=== PATIENT | female | born 1980 | race Caucasian/White ===

== ENCOUNTER → 2017-06-23 11:23 | Outpatient (POV) | payer BC, SELFPAY ==
[2017-06-23 11:58] VITALS: BP 155/72; PULSE 86; RESP 16; TEMP 36.4; O2SAT 98; BMI 40.7
--- NOTE | 2017-06-23 12:02 | P.CONS_ITS ---
[facility] Pain Management SOAP Note Subjective:: This patient is a pleasant 37-year-old white female who we have treated in the past for neck pain and headaches with cervical epidural steroid injections. She has not gotten much relief from 2 cervical epidural steroid injections. She is having muscle spasms in her neck and also in her low back. She is currently on Zanaflex 4 mg 3 times a day. I do believe she may benefit from trigger point injections. We will schedule her for trigger point injections to the cervical paraspinous muscles and upper trapezius muscles. Objective:: Alert and oriented ?3 in no acute distress. Tenderness over the cervical spine and upper trapezius area. Tenderness over the lower lumbar spine. Motor strength of the upper and lower extremities is 5/5. There is no gross sensory deficit. Assessment:: Neck pain myofascial in origin, low back pain myofascial in origin Plan:: I do believe that she may benefit from trigger point injections. We will start with the cervical paraspinous muscles and upper trapezius muscles. We will schedule her for trigger point injections to these areas bilaterally.
== END ==
PROVIDERS: PCP Nurse Practitioner Family; Visit Provider Anesthesiology
DX: M54.5 Low back pain (principal); M54.2 Cervicalgia
CPT/HCPCS: 99212

== ENCOUNTER → 2017-07-25 10:44 | Day surgery (SDC) | payer BC, SELFPAY ==
[2017-07-25 12:19] VITALS: BP 133/66; PULSE 86; RESP 24; TEMP 36.4; O2SAT 97; BMI 40.7
[2017-07-25 12:34] VITALS: BP 145/70; PULSE 88; RESP 18
[2017-07-25 12:40] VITALS: BP 145/76; PULSE 80; RESP 18
--- NOTE | 2017-07-25 12:43 | P.PCN_ITS ---
- Procedure Date: 07/25/17 Time: 12:41 Anesthesiologist:: Thierry Brennan MD Complications:: None Pre-procedure Diagnosis:: Neck pain myofascial in origin Post-procedure Diagnosis:: Same Indications for Procedure:: This patient is a pleasant 37-year-old white female who we have treated in the past for neck pain and headaches with cervical epidural steroid injections. She is doing well with her headaches however she does have some myofascial pain in the upper trapezius area and cervical paraspinous area bilaterally. She also has some myofascial pain in her lower lumbar area. We will start with her neck and upper trapezius area today and do trigger point injections. She does have significant myofascial pain with trigger points identified. Procedure Details:: Trigger point injections ?8 to bilateral cervical paraspinous muscles and upper trapezius muscles Informed consent was obtained and the risk and benefits of the procedure was explained to the patient. Patient was taken to the procedure room. The neck upper trapezius area was prepped using prep. Triggerpoints were palpated and marked. Each of each of these trigger points were injected with bupivacaine 0.5 % 3 mL and Depo-Medrol 10 mg. A total of 8 trigger points were injected using 80 mg Depo-Medrol. The patient tolerated the procedure well with no complications. Plan and Disposition:: We will follow-up with her in 2 weeks. We will reevaluate her symptoms at that time. We will schedule her in the future for trigger point injections to the lower lumbar area.
[2017-07-25 12:46] VITALS: BP 148/87; PULSE 80; RESP 20; TEMP 36.6; O2SAT 95
== END ==
PROVIDERS: Family Provider Family Medicine; PCP Family Medicine; Visit Provider Anesthesiology
DX: M79.1 Myalgia (principal)
CPT/HCPCS: 20552

== ENCOUNTER → 2017-08-18 13:54 | Outpatient (POV) | payer BC, SELFPAY ==
[2017-08-18 14:47] VITALS: BP 145/93; PULSE 94; RESP 20; O2SAT 97; BMI 40.7
--- NOTE | 2017-08-18 15:02 | HMH.PAINSOAP ---
[facility] Pain Management SOAP Note Subjective:: This patient is a 37-year-old white female who we have been treating for neck pain with cervical radicular symptoms and headaches. She has had cervical epidural steroid injections as well as trigger point injections with minimal relief in pain symptoms. She is also had Botox injections for her headaches which have not helped. We were denied for previous cervical MRI. Since she is not getting any benefit from injections I believe that she needs a repeat cervical MRI and referral to spine surgeon for evaluation. We will send her to Dr. Salamanca here in [place] for evaluation. Objective:: Alert and oriented ?3 in no acute distress. Decreased range of motion of the cervical spine. Tenderness over the midline of the cervical spine. Motor strength of the upper extremities is 5/5. There is no gross sensory deficit. Assessment:: Neck pain with headaches and cervical radicular symptoms. Plan:: We will refer her to Dr. Salamanca for evaluation. We will seek approval for repeat cervical MRI.
== END ==
PROVIDERS: Family Provider Family Medicine; PCP Family Medicine; Visit Provider Anesthesiology
DX: M54.12 Radiculopathy, cervical region (principal)
CPT/HCPCS: 99212

== ENCOUNTER → 2017-08-21 14:55 | Outpatient (CLI) | payer BC, SELFPAY ==
--- NOTE | 2017-08-21 15:00 | MR_ITS ---
MR cervical spine wo con, MR 3-d myelogram/MRCP HISTORY: PT states hx migraines. Neck and arm pain, numbness and tingling X years. ITS.REASON: NECK AND ARM PAIN ORDERING PHYSICIAN: Thierry Brennan MD PATIENT AGE: 37 years COMPARISON: Prior X-Ray 03/17/17 TECHNIQUE: Standard multiplanar multiecho sequences are performed without contrast. 3-D MIP and myelographic images are also rendered and reviewed FINDINGS: There is normal alignment. The craniocervical junction has an unremarkable appearance. There is straightening of the cervical lordosis which could be due to patient positioning or muscle spasm. C2-C3, C3-C4, C4-C5, and C5-C6 has an unremarkable appearance. C6-C7: There is a small left paracentral disc protrusion without impingement. C7-T1: Unremarkable. No canal stenosis or significant degenerative change evident. IMPRESSION: 1. Small left paracentral disc protrusion at C6-C7 without impingement. 2. Straightening of cervical lordosis which may be due to patient positioning or muscle spasm. 3. Otherwise negative MRI of the cervical spine.
== END ==
PROVIDERS: Family Provider Family Medicine; PCP Family Medicine; Visit Provider Anesthesiology
DX: M54.2 Cervicalgia (principal)
CPT/HCPCS: 72141; 76376

== ENCOUNTER 2017-11-24 08:30 | Outpatient (RCR) | payer BC, SELFPAY | END 2017-11-24 08:31 | disposition home or self-care (01) | LOC: PT 08:30 | PROVIDERS: Family Provider Family Medicine; PCP Family Medicine; Visit Provider Nurse Practitioner Family | DX: M79.1 Myalgia (principal); R51 Headache | CPT/HCPCS: 97010; 97012; 97014; 97110; 97163; G0283 ==

== ENCOUNTER → 2018-01-10 10:03 | Outpatient (CLI) | payer BC, SELFPAY ==
[2018-01-10 10:40] LABS: Basophils # 0.1 K/mm3 (0-0.2); Basophils % 0.8 % (0.1-2.0); Eosinophils # 0.3 K/mm3 (0.0-0.4); Eosinophils % 3.7 % (0.1-12.0); Hematocrit 42.8 % (37.0-47.0); Hemoglobin 14.4 g/dL (12.2-16.2); Lymphocytes # 2.4 K/mm3 (0.7-4.5); Lymphocytes % 30.7 K/mm3 (10-50); Mean Corpuscular HGB Conc 33.7 g/dL (31.8-35.4); Mean Corpuscular Hemoglobin 30.4 pg (27.0-31.2); Mean Corpuscular Volume 90.2 fl (81-99); Mean Platelet Volume 7.7 fl (7.4-10.4); Monocytes # 0.4 K/mm3 (0.1-1.0); Monocytes % 4.9 % (1.7-9.3); Neutrophils # 4.7 K/mm3 (1.8-7.8); Neutrophils % 59.9 % (37.0-80.0); Platelet Count 275 K/mm3 (142-424); Red Blood Count 4.75 M/mm3 (4.20-5.40); Red Cell Distribution Width 12.8 % (11.5-17.5); White Blood Count 7.8 K/mm3 (4.8-10.8)
[2018-01-10 10:45] LABS: Glucose,Fasting 128 mg/dL (60-105)
[2018-01-10 12:10] LABS: Glucose 1 Hour 294 mg/dL (74-106)
[2018-01-10 12:20] LABS: Hemoglobin A1C 6.7 % (0.0-7.0)
[2018-01-10 12:24] LABS: Alanine Aminotransferase 116 U/L (12-78); Albumin Level 3.6 gm/dL (3.4-5.0); Alkaline Phosphatase 88 U/L (46-116); Anion Gap 17.1 mEq/L (5-15); Aspartate Amino Transferase 42 U/L (15-37); Bilirubin,Total 0.2 mg/dL (0.2-1.0); Blood Urea Nitrogen 12 mg/dL (7-18); Carbon Dioxide 20 mmol/L (21.0-32.0); Chloride 108 mmol/L (98-107); Chol/HDL Ratio 9.1 (1-3.5); Cholesterol 265 mg/dL (140-200); Creatinine,Serum 0.85 mg/dL (0.55-1.02); Estimated Glomerular Filt Rate 76 ml/min (>60); GFR (African American) 92 ML/MIN (>60); Globulin 3.7 gm/dl (1.3-3.2); Glucose 125 mg/dL (74-106); HDL Cholesterol 29 mg/dL (29-89); LDL Cholesterol 197 mg/dL (0-130); Potassium 4.1 mmoL/L (3.5-5.1); Sodium 141 mmol/L (136-145); T4 (Thyroxine) 8.5 ug/dl (4.7-13.3); Thyroid Stimulating Hormone 3.78 uIU/ml (0.358-3.740); Total Protein,Serum 7.3 gm/dL (6.4-8.2); Triglycerides 197 mg/dL (30-200); VLDL Cholesterol 39 mg/dL (0-40)
[2018-01-10 12:53] LABS: Glucose 2 Hour 291 mg/dL (74-106)
[2018-01-10 13:52] LABS: Glucose 3 Hour 141 mg/dL (74-106)
[2018-01-11 16:11] LABS: Hep A Ab, IgM Negative (Negative); Hepatitis B Core Antibody IgM Negative (Negative); Hepatitis B Surface Antigen Negative (Negative)
[2018-01-12 05:32] LABS: Hepatitis C Antibody 0.1 s/co ratio (0.0-0.9)
[2018-01-13 16:04] LABS: Vitamin D 25 Hydroxy 20.5 ng/mL (30.0-100.0)
== END ==
PROVIDERS: PCP Nurse Practitioner Family; Visit Provider Nurse Practitioner Family
DX: E16.2 Hypoglycemia, unspecified (principal); R76.8 Other specified abnormal immunological findings in serum; R10.9 Unspecified abdominal pain
CPT/HCPCS: 36415; 80053; 80061; 80074; 82652; 82951; 83036; 84436; 84443; 85025

== ENCOUNTER → 2018-01-19 09:23 | Outpatient (CLI) | payer BC, SELFPAY ==
--- NOTE | 2018-01-19 09:28 | US_ITS ---
US abdomen complete HISTORY: Elevated liver enzymes ITS.REASON: ruq pain ORDERING PHYSICIAN: Tarun hCen PATIENT AGE: 37 years COMPARISON: Previous ultrasound right upper December 2013 FINDINGS: PANCREAS:Unremarkable. No obvious mass or abnormal fluid collection. No ductal dilatation LIVER. Diffuse fatty changes.:No focal liver lesions demonstrated... No intrahepatic biliary ductal dilatation evident Portal vein unremarkable. Normal. COMMON DUCT normal diameter 3 mm at hilum of liver GALLBLADDER:No gallstones, minimal sludge. Moderate size measuring 8.2 cm length upper normal gallbladder wall thickness wall measuring up to 4 mm in some areas RIGHT KIDNEY:Unremarkable 11.5 cm length.. Normal size and echogenicity. No hydronephrosis LEFT KIDNEY:Unremarkable 11.8 cm length.. No hydronephrosis. Normal size and echogenicity. . AORTA:No evidence of aneurysmal dilatation. SPLEEN:Unremarkable. Normal size and echogenicity No fluid or ascites encountered at upper abdomen. IMPRESSION: 1. Gallbladder. No gallstones. Minimal sludge. Borderline wall thickening. 2. Common duct normal. 3. Diffuse fatty changes liver. 4. Pancreas kidneys aorta spleen unremarkable
== END ==
PROVIDERS: Family Provider Family Medicine; PCP Nurse Practitioner Family; Visit Provider Nurse Practitioner Family
DX: R10.9 Unspecified abdominal pain (principal)
CPT/HCPCS: 76700

== ENCOUNTER → 2018-02-09 10:35 | Outpatient (CLI) | payer BC, SELFPAY ==
--- NOTE | 2018-02-09 10:36 | NM_ITS ---
NM hepatobiliary wo pharm HISTORY: Elevated liver enzymes, abdominal pain ITS.REASON: sludge ORDERING PHYSICIAN: Tarun Chen PATIENT AGE: 37 years COMPARISON: None DOSE: 8.23 MCI TC Choletec INJ into RT ANT Fatty Meal Ensure FINDINGS: Homogeneous activity is present within the hepatic parenchyma. Activity is present in the gallbladder by 5 minutes. Activity is present in the small bowel by 60 minutes. The gallbladder ejection fraction is calculated to be 58% The patient did not report pain or other symptoms during the fatty meal. IMPRESSION: Unremarkable hepatobiliary scan and gallbladder ejection fraction. No evidence of common or cystic duct obstruction with normal gallbladder ejection fraction
--- NOTE | 2018-02-09 10:48 | HMH.ITSHM ---
VENLAFAXINE TOPIRAMATE METOPROLOL METOCLOPRAMIDE LEVOTHYROXINE VITAMIN D2 ATORVASTATIN
== END ==
PROVIDERS: Family Provider Family Medicine; PCP Nurse Practitioner Family; Visit Provider Nurse Practitioner Family
DX: K82.8 Other specified diseases of gallbladder (principal)
CPT/HCPCS: 78226; A9537

== ENCOUNTER → 2018-02-19 13:38 | Outpatient (REF) | payer BC, SELFPAY ==
[2018-02-19 18:47] LABS: Cannabinoid Screen,Urine Negative ng/mL (<50); Cocaine Screen,Urine Negative ng/mL (<300); Methadone Screen,Urine Negative ng/mL (<300); Opiate Screen,Urine Negative ng/mL (<300); Phencyclidine Screen,Urine Negative ng/mL (<25)
[2018-02-19 19:06] LABS: Amphetamine/Metha Screen,Urine Negative ng/mL (<1000); Barbiturates Screen,Urine Negative ng/mL (<200); Benzodiazepines Screen,Urine Negative ng/mL (<200)
== END ==
LOC: LAB 13:38
PROVIDERS: PCP Nurse Practitioner Family; Visit Provider Nurse Practitioner Family
DX: Z79.899 Other long term (current) drug therapy (principal)
CPT/HCPCS: 80305

== ENCOUNTER → 2019-08-24 15:00 | Outpatient (CLI) | payer OTHER, SELFPAY ==
[2019-08-25 08:44] LABS: Adenovirus F 40/41, stool Not Detected (NotDetected); Astrovirus Not Detected (NotDetected); Campylobacter Not Detected (NotDetected); Clostridium Difficile A/B, PCR Not Detected (NotDetected); Cryptosporidium Not Detected (NotDetected); Cyclospora Cayetanesis Not Detected (NotDetected); Entamoeba histolytica Not Detected (NotDetected); Enteroaggregative E coli Not Detected (NotDetected); Enteropathogenic E coli Not Detected (NotDetected); Enterotoxigenic E coli Not Detected (NotDetected); Giardia lamblia Not Detected (NotDetected); Norovirus Not Detected (NotDetected); Plesimonas Shigalloides, PCR Not Detected (NotDetected); Rotavirus A Not Detected (NotDetected); Salmonella, PCR Not Detected (NotDetected); Sapovirus Not Detected (NotDetected); Shiga-like toxin E coli Not Detected (NotDetected); Shigella Enterovasive E coli Not Detected (NotDetected); Vibrio Cholerae Not Detected (NotDetected); Vibrio, PCR Not Detected (NotDetected); Yersinia Entercolitica, PCR Not Detected (NotDetected)
== END ==
PROVIDERS: Visit Provider Nurse Practitioner Family
DX: R10.11 Right upper quadrant pain (principal); R19.7 Diarrhea, unspecified; R11.0 Nausea; R14.3 Flatulence; K82.9 Disease of gallbladder, unspecified; K52.9 Noninfective gastroenteritis and colitis, unspecified; A09 Infectious gastroenteritis and colitis, unspecified
CPT/HCPCS: 87507

== ENCOUNTER → 2019-08-25 10:06 | Outpatient (CLI) | payer OTHER, SELFPAY ==
--- NOTE | 2019-08-25 10:06 | US_ITS ---
PROCEDURE: US GALLBLADDER CLINICAL INDICATION: abd pain Right upper quadrant pain and nausea COMPARISON: No exams were available for comparison FINDINGS: Pancreas: Unremarkable/Not well seen Liver: Unremarkable. There is appropriate direction of blood flow within a non dilated portal vein. Right kidney: Unremarkable appearing. No hydronephrosis. Gallbladder: No stones are evident. There is no gallbladder wall thickening. Common duct is normal in diameter. IMPRESSION: Negative gallbladder ultrasound. No stones evident. Dictated by: Gallo Silvestre MD 08/25/2019 11:22 Electronically signed by Gallo Silvestre MD in [place] 08/25/2019 11:22
== END ==
PROVIDERS: PCP Nurse Practitioner Family; Visit Provider Nurse Practitioner Family
DX: R10.11 Right upper quadrant pain (principal)
CPT/HCPCS: 76705

== ENCOUNTER → 2020-02-09 18:45 | Outpatient (CLI) | payer OTHER, SELFPAY ==
[2020-02-09 19:37] LABS: Basophils # 0.1 K/mm3 (0-0.2); Basophils % 0.6 % (0.1-2.0); Eosinophils # 0.3 K/mm3 (0.0-0.4); Eosinophils % 2.8 % (0.1-12.0); Hematocrit 41.5 % (37.0-47.0); Lymphocytes # 3.2 K/mm3 (0.7-4.5); Lymphocytes % 28.4 % (10-50); Mean Corpuscular HGB Conc 33.7 g/dL (31.8-35.4); Mean Corpuscular Hemoglobin 31.3 pg (27.0-31.2); Mean Corpuscular Volume 93.1 fl (81-99); Mean Platelet Volume 8.3 fl (7.4-10.4); Monocytes # 0.6 K/mm3 (0.1-1.0); Monocytes % 4.9 % (1.7-9.3); Neutrophils # 7.1 K/mm3 (1.8-7.8); Neutrophils % 63.4 % (37.0-80.0); Platelet Count 262 K/mm3 (142-424); Red Blood Count 4.46 M/mm3 (4.20-5.40); Red Cell Distribution Width 12.8 % (11.5-17.5); White Blood Count 11.3 K/mm3 (4.8-10.8)
[2020-02-09 19:41] LABS: Alanine Aminotransferase 26 U/L (12-78); Albumin Level 4.6 g/dl (3.5-5.0); Albumin/Globulin Ratio 1.6 (1.1-1.8); Alkaline Phosphatase 84 U/L (38-126); Anion Gap 17.2 mEq/L (5-15); Aspartate Amino Transferase 26 U/L (14-36); Bilirubin,Total 0.3 mg/dl (0.2-1.3); Blood Urea Nitrogen 11 mg/dl (7-17); Calcium 9.8 mg/dl (8.4-10.2); Carbon Dioxide 24 mmol/L (22.0-30.0); Chloride 110 mmol/L (98-107); Chol/HDL Ratio 4.5 (1-3.5); Cholesterol 147 mg/dl (140-200); Estimated Glomerular Filt Rate 80 ml/min (>60); GFR (African American) 97 ML/MIN (>60); Globulin 2.9 g/dL (1.3-3.2); Glucose 111 mg/dl (74-100); HDL Cholesterol 33 mg/dl (40-60); Potassium 4.2 mmoL/L (3.5-5.1); Sodium 147 mmol/L (136-145); Total Protein,Serum 7.5 g/dl (6.3-8.2); Triglycerides 160 mg/dl (30-150); VLDL Cholesterol 32 mg/dL (0-40)
[2020-02-09 19:43] LABS: Creatinine,Urine Random 119 mg/dL (Not Estab.)
[2020-02-09 19:52] LABS: Direct LDL Cholesterol 91.25 mg/dL (100-129)
[2020-02-09 19:54] LABS: Microalbumin < 6.000 mg/L (0-16.7)
[2020-02-09 19:59] LABS: 25-OH Vitamin D, Total 53.9 ng/mL (30-100); Hemoglobin A1C 6.2 % (4.0-6.0)
[2020-02-09 20:01] LABS: T4 (Thyroxine) 12.3 ug/dl (5.53-11.0)
[2020-02-09 20:14] LABS: Thyroid Stimulating Hormone 0.02 uIU/mL (0.465-4.68)
== END ==
PROVIDERS: Visit Provider Nurse Practitioner Family
DX: E03.9 Hypothyroidism, unspecified (principal); E11.9 Type 2 diabetes mellitus without complications; E78.5 Hyperlipidemia, unspecified; R53.83 Other fatigue
CPT/HCPCS: 80053; 80061; 82043; 82306; 82570; 83036; 84436; 84443; 85025

== ENCOUNTER → 2020-04-18 08:32 | Outpatient (CLI) | payer OTHER, SELFPAY ==
--- NOTE | 2020-04-18 08:35 | US_ITS ---
PROCEDURE: US ABDOMEN LIMITED CLINICAL INDICATION: RUQ PAIN COMPARISON: US [facility] US abdomen complete from 01/19/2018 FINDINGS: PANCREAS: Unremarkable. No obvious mass or abnormal fluid collection. No ductal dilatation LIVER: No focal liver lesions demonstrated. Homogeneous echogenicity. No intrahepatic biliary ductal dilatation evident. There is appropriate direction of blood flow within a non dilated portal vein RIGHT KIDNEY: Unremarkable. Normal size and echogenicity. No hydronephrosis GALLBLADDER: No gallstones, gallbladder wall thickening, pericholecystic fluid, or biliary dilatation. IMPRESSION: Unremarkable limited abdominal ultrasound as detailed above disc Dictated by: Gallo Silvestre MD 04/18/2020 17:01 Gallo Silvestre MD in [place] 04/18/2020 17:01
== END ==
PROVIDERS: PCP Family Medicine; Visit Provider Family Medicine
DX: R10.11 Right upper quadrant pain (principal)
CPT/HCPCS: 76705

== ENCOUNTER → 2020-05-11 10:13 | Outpatient (CLI) | payer OTHER, SELFPAY ==
--- NOTE | 2020-05-11 10:16 | NM_ITS ---
PROCEDURE: NM HEPATOBILIARY W PHARM CLINICAL INDICATION: RUQ PAIN COMPARISON: No exams were available for comparison TECHNIQUE: DOSE: 8.17 MCI TECHNETIUM CHOLETEC 2.2 MCG OF CCK. MILD PAIN WAS REPORTED WITH CCK INFUSION FINDINGS: Homogeneous activity is present within the hepatic parenchyma. Activity is present in the gallbladder by 15 MINUTES. Activity is present in the small bowel by 5 MINUTES. The gallbladder ejection fraction is calculated to be 13 percent. Mild pain was reported with CCK infusion IMPRESSION: There is no evidence of common or cystic duct obstruction. The gallbladder ejection fraction is low and there was mild pain reported with CCK infusion. These findings may indicate gallbladder dyskinesia. Please correlate with clinical parameters Dictated by: Gallo Silvestre MD 05/11/2020 13:00 Gallo Silvestre MD in [place] 05/11/2020 13:00
== END ==
PROVIDERS: PCP Family Medicine; Visit Provider Family Medicine
DX: R10.11 Right upper quadrant pain (principal)
CPT/HCPCS: 78227; A9537; J2805

== ENCOUNTER → 2020-06-03 08:05 | Outpatient (CLI) | payer OTHER, SELFPAY ==
[2020-06-03 08:17] LABS: Basophils # 0.1 K/mm3 (0-0.2); Basophils % 0.8 % (0.1-2.0); Eosinophils # 0.3 K/mm3 (0.0-0.4); Eosinophils % 2.8 % (0.1-12.0); Hematocrit 44.8 % (37.0-47.0); Hemoglobin 14.8 g/dL (12.2-16.2); Lymphocytes # 2.6 K/mm3 (0.7-4.5); Lymphocytes % 26.8 % (10-50); Mean Corpuscular HGB Conc 33.1 g/dL (31.8-35.4); Mean Corpuscular Hemoglobin 31.3 pg (27.0-31.2); Mean Corpuscular Volume 94.5 fl (81-99); Mean Platelet Volume 7.5 fl (7.4-10.4); Monocytes # 0.5 K/mm3 (0.1-1.0); Monocytes % 5.5 % (1.7-9.3); Neutrophils # 6.1 K/mm3 (1.8-7.8); Platelet Count 262 K/mm3 (142-424); Red Blood Count 4.74 M/mm3 (4.20-5.40); Red Cell Distribution Width 13.2 % (11.5-17.5); White Blood Count 9.6 K/mm3 (4.8-10.8)
[2020-06-03 08:44] LABS: Alanine Aminotransferase 28 U/L (12-78); Albumin Level 4.4 g/dl (3.5-5.0); Albumin/Globulin Ratio 1.6 (1.1-1.8); Alkaline Phosphatase 83 U/L (38-126); Anion Gap 12.8 mEq/L (5-15); Aspartate Amino Transferase 25 U/L (14-36); Bilirubin,Total 0.4 mg/dl (0.2-1.3); Blood Urea Nitrogen 12 mg/dl (7-17); Calcium 9.8 mg/dl (8.4-10.2); Carbon Dioxide 24 mmol/L (22.0-30.0); Chloride 108 mmol/L (98-107); Estimated Glomerular Filt Rate 80 ml/min (>60); GFR (African American) 97 ML/MIN (>60); Globulin 2.8 g/dL (1.3-3.2); Glucose 123 mg/dl (74-100); Potassium 3.8 mmoL/L (3.5-5.1); Sodium 141 mmol/L (136-145); Total Protein,Serum 7.2 g/dl (6.3-8.2)
[2020-06-03 08:58] LABS: Coronavirus 19 IgG Antibody Negative (Negative); Coronavirus 19 IgM Antibody Negative (Negative)
== END ==
PROVIDERS: Visit Provider Surgery
DX: Z01.818 Encounter for other preprocedural examination (principal); Z11.52 Encounter for screening for COVID-19; R10.11 Right upper quadrant pain; K82.8 Other specified diseases of gallbladder
CPT/HCPCS: 36415; 80053; 85025; 86328

== ENCOUNTER 2020-06-05 06:07 | Day surgery (SDC) | payer OTHER, SELFPAY ==
[2020-05-30 11:34] VITALS: BMI 37.0
[2020-06-05] VITALS (12 sets, daily range): BP systolic 90–111; BP diastolic 58–72; PULSE 54–69; RESP 12–20; TEMP 36.1–43; O2SAT 95–100
[2020-06-05 06:35] LABS: POC Glucose,Bedside 110 (70-110)
--- NOTE | 2020-06-05 06:56 | P.PN_ITS ---
[facility] Anesthesia Checklist - Structural Data Admitted From: Home Planned Operative Procedure/s: jani vazqueze Consent for Planned Operative Procedure(s) Verified: Yes - Additional verifications Anesthesia Reactions: No Hx Blood Transfusions: No Blood Transfusion Reaction: No - Airway Assessment C-Spine Mobility Assessed: Yes TMJ Mobility Assessed: Yes Dentition: Good Dentition - Neurological Assessment Level of Consciousness: Awake, Alert, Appropriate - Anesthesia Plan Anesthesia Risk discussed: Yes Anesthesia Plan: Verified ASA Class: III Anesthesia Type: General [facility] History I have reviewed the patient's past medical history: Yes Medical History: Reports:: Diabetes Mellitus Type 2, Hyperlipidemia, Migraine, MRSA Denies:: Cancer, Diabetes Mellitus Type 1, Internal Pacemaker, Seizures *Have you ever received a pneumonia vaccine?: No *Have you received a flu vaccine this season?: No Other Medical History: Reports: Hypothyroidism. Denies: Blood Transfusion Reaction Anesthesia experience/problems:: none Other Surgeries: Yes: Hysterectomy-Total, Other. No: Pacemaker Amputation: No Fractures: No - *Social History Last grade of school completed: Some college Smoking Status: Current every day smoker Tobacco Type: cigarettes # Packs/Day (cigarettes): 1 Alcohol Intake: never Substance Use Type: denies use *Occupational Status:: employed Housing: house Household Members: spouse, children *Travel in the last 8 weeks: None Family Hx:: Coronary Artery Disease, Diabetes, Heart Attack, Hyperlipidemia, Hypertension
--- NOTE | 2020-06-05 08:15 | HMH.OPNOTE ---
Date of procedure: 06/05/20 Pre-op Diagnosis:: Biliary dyskinesia Post-op Diagnosis:: Chronic cholecystitis Procedure performed:: Laparoscopic cholecystectomy Surgeon:: Jonathan Bosch MD [employer] MACHINE SETTER:: Keyshawn Vinson Anesthesia: GETA Estimated blood loss (mL): 10 Operative findings:: Significant pericholecystic fat stranding Operative note:: After informed consent was obtained, the patient was taken to the operating room and placed in the supine position. General anesthesia was induced and the abdomen was prepped and draped in a sterile fashion. After infiltration with local anesthetic an infraumbilical incision was made. A Veress needle was placed in position. The abdomen was insufflated. A 5 mm optical trocar was placed in position. Under direct visualization, a 12 mm trocar was placed in the subxiphoid position and 2 additional 5 mm trocars were placed in the right upper quadrant. The gallbladder was elevated up and over the liver margin. The tissue around the cystic duct was carefully dissected. 3 clips were placed proximally and the duct was transected with harmonic odalis. Harmonic odalis were then utilized to dissect the gallbladder away from the liver margin with careful attention to the control of the cystic artery. The gallbladder was placed in a retrieval bag and removed through the subxiphoid trocar site. The right upper quadrant was thoroughly irrigated. No active bleeding or bile leak was noted. Fascia at the subxiphoid trocar site was reapproximated utilizing the NeoClose device. The remaining trocars were removed. All wounds were irrigated and skin was closed with 4-0 Monocryl in a subcuticular fashion. Steri-Strips were applied. The patient's anesthetic agents were reversed and extubation was completed prior to transfer to recovery in stable condition. Condition: stable Disposition: PACU Specimens:: Gallbladder and contents Complications:: No immediate
--- NOTE | 2020-06-05 08:22 | P.PN_ITS ---
[facility] Anesthesia Record Part I Intake, IV Amount: 1,500 Estimated blood loss (mL): 0 Urine output (mL): 0 Blood Pressure: 110/58 SaO2: 97 Pulse Rate: 66 Respiratory Rate: 12 Temperature: 97.8 F Patient is:: Awake, Stable Stable to PACU at:: 08:20
[2020-06-06 09:28] VITALS: BP 101/58; PULSE 62; TEMP 36.3
--- NOTE | 2020-06-06 09:28 | HMH.ANESII ---
[facility] Anesthesia Record Part II Discharge Time: 08:50 Destination: [facility] PACU nurse assessment reviewed?: Yes Patient Condition:: Good Anesthesia Complications:: None Swallowing reflex intact?: Yes Cyanosis?: No Blood Pressure: 101/58 Pulse Rate: 62 Temperature: 97.3 F Mental Status: Alert & Oriented Pain level:: 0 Nausea and/or vomitting:: None Intake, IV Amount: 1,500
== END 2020-06-05 09:33 | disposition home or self-care (01) ==
LOC: OR 06:09
PROVIDERS: PCP Family Medicine; Visit Provider Surgery
PROC: 0FT44ZZ Resection of Gallbladder, Percutaneous Endoscopic Approach (ICD-10-PCS; CPT 47562; principal; 2020-06-05 07:30)
DX: K81.1 Chronic cholecystitis; E11.9 Type 2 diabetes mellitus without complications; E78.5 Hyperlipidemia, unspecified; G43.909 Migraine, unspecified, not intractable, without status migrainosus; Z86.14 Personal history of Methicillin resistant Staphylococcus aureus infection; E03.9 Hypothyroidism, unspecified; Z72.0 Tobacco use; Z82.49 Family history of ischemic heart disease and other diseases of the circulatory system; Z83.438 Family history of other disorder of lipoprotein metabolism and other lipidemia
CPT/HCPCS: 47562; 82962; 96374; J2405; J2710

== ENCOUNTER → 2020-07-24 09:43 | Outpatient (CLI) | payer OTHER, SELFPAY ==
--- NOTE | 2020-07-24 09:43 | NM_ITS ---
PROCEDURE: NM GASTRIC EMPTYING STUDY CLINICAL INDICATION: Abdominal pain and nausea since gallbladder surgery COMPARISON: No exams were available for comparison FINDINGS: Dose: 0.53 mCi technetium sulfur colloid in radial labeled meal. Time activity curve is generated following the ingestion of a radial labeled meal. The 1/2 emptying time is 53 minutes which is within normal limits. Images generated show no obvious reflux. 96 percent of the gastric contents had emptied at 249 minutes. IMPRESSION: Normal gastric emptying time Dictated by: Gallo Silvestre MD 07/24/2020 16:16 Gallo Silvestre MD in [place] 07/24/2020 16:16
--- NOTE | 2020-07-24 10:50 | HMH.ITSHM ---
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 []METOPROLOL ATORVASTATIN METFORMIN LEVOTHYROXINE VITAMIN D2
== END ==
PROVIDERS: PCP Family Medicine; Visit Provider Surgery
DX: R11.0 Nausea (principal); Z98.890 Other specified postprocedural states
CPT/HCPCS: 78264; A9541

== ENCOUNTER → 2020-09-05 08:36 | Outpatient (CLI) | payer OTHER, SELFPAY ==
--- NOTE | 2020-09-05 08:45 | FL_ITS ---
PROCEDURE: FL UPPER GI SMALL BOWEL CLINICAL INDICATION: gallbladder removal pain Right upper quadrant pain COMPARISON: No exams were available for comparison FINDINGS: [employer] Flat Grinder exam shows no acute finding. The esophagus has an unremarkable appearance. No annular constricting lesions or polypoid filling defects. No hiatal hernia. There was a mild amount of GE reflux. The stomach and duodenum are unremarkable. No mass or ulcer apparent. There has been a prior cholecystectomy. Small bowel has an unremarkable appearance. No obstructing lesions masses or mucosal abnormalities apparent. Spot views of the terminal ileum are unremarkable. IMPRESSION: Minimal amount GE reflux otherwise negative upper GI with small-bowel follow-through Dictated by: Gallo Silvestre MD 09/05/2020 13:27 Gallo Silvestre MD in [place] 09/05/2020 13:27
[2020-09-05 08:52] LABS: Basophils # 0.1 K/mm3 (0-0.2); Eosinophils # 0.3 K/mm3 (0.0-0.4); Hematocrit 43.9 % (37.0-47.0); Hemoglobin 14.4 g/dL (12.2-16.2); Lymphocytes # 3.3 K/mm3 (0.7-4.5); Lymphocytes % 31.1 % (10-50); Mean Corpuscular HGB Conc 32.8 g/dL (31.8-35.4); Mean Corpuscular Hemoglobin 30.2 pg (27.0-31.2); Mean Corpuscular Volume 92.1 fl (81-99); Mean Platelet Volume 7.9 fl (7.4-10.4); Monocytes # 0.6 K/mm3 (0.1-1.0); Monocytes % 5.3 % (1.7-9.3); Neutrophils # 6.3 K/mm3 (1.8-7.8); Neutrophils % 59.6 % (37.0-80.0); Platelet Count 277 K/mm3 (142-424); Red Blood Count 4.77 M/mm3 (4.20-5.40); Red Cell Distribution Width 13.2 % (11.5-17.5); White Blood Count 10.5 K/mm3 (4.8-10.8)
[2020-09-05 09:14] LABS: Chloride 112 mmol/L (98-107); Potassium 4.4 mmoL/L (3.5-5.1); Sodium 144 mmol/L (136-145)
[2020-09-05 09:16] LABS: Amylase 56 U/L (30-110); Blood Urea Nitrogen 13 mg/dl (7-17); Estimated Glomerular Filt Rate 80 ml/min (>60); GFR (African American) 97 ML/MIN (>60)
[2020-09-05 09:17] LABS: Alanine Aminotransferase 32 U/L (12-78); Albumin Level 4.9 g/dl (3.5-5.0); Alkaline Phosphatase 85 U/L (38-126); Anion Gap 11.4 mEq/L (5-15); Aspartate Amino Transferase 27 U/L (14-36); Bilirubin,Total 0.5 mg/dl (0.2-1.3); Calcium 9.8 mg/dl (8.4-10.2); Carbon Dioxide 25 mmol/L (22.0-30.0); Globulin 2.5 g/dL (1.3-3.2); Glucose 122 mg/dl (74-100); Lipase 60 U/L (23-300); Total Protein,Serum 7.4 g/dl (6.3-8.2)
== END ==
PROVIDERS: PCP Family Medicine; Visit Provider Surgery
DX: K81.1 Chronic cholecystitis (principal); R11.0 Nausea; G89.18 Other acute postprocedural pain; Z98.890 Other specified postprocedural states
CPT/HCPCS: 36415; 74246; 74248; 80053; 82150; 83690; 85025

== ENCOUNTER 2021-02-12 20:20 | Emergency (ER) | payer OTHER, SELFPAY ==
[2021-02-12 21:10] VITALS: BP 136/73; PULSE 79; RESP 16; TEMP 36.6; O2SAT 98; BMI 36.0
--- NOTE | 2021-02-12 21:42 | HMH.EDUTC ---
[facility] [place] Disposition Clinical Impression: Viral upper respiratory infection, Encounter for laboratory testing for COVID-19 virus Disposition: Home, Self-Care Condition on Discharge: Good Instructions: DI for COVID-19 (Suspected or Confirmed ), Preventing the Spread of Coronavirus Discharge Instructions, Guaifenesin, DI for Nasal Congestion Additional Instructions: *Monitor Temp, Over the counter Motrin or Tylenol as directed/as needed Tylenol every 4 hours and Motrin every 6 hours (as long as your family doctor has told you that you can take it) for fever or pain. and straight to ER if unable to lower temp less than 101.0 after medication given *Warm salt water gargles may help to soothe the throat *Throat Lozenges *Warm fluids like tea with honey may help to soothe the throat *Sleep elevated *Humidifier/Vaporizer Over the counter Robitussin or Mucinex may help with cough and congestion Follow up IMMEDIATELY for new or worsening symptoms or no Noticeable improvement over the next 48-72 hours. 911 for difficulty breathing or swallowing You were tested for today for COVID19 your test result should be back in the next 24-48 hours, you was given handout on how to check for your [facility] if you have issues or no internet access you may call the [facility] You was given a handout with instructions for Self Quarantine and Self isolation for while you wait on test results and what to do if they are positive If you are positive the Health Dept will be contacting you also Make sure to take your Vitamins Vit. C Vit D and Zinc if you can take them Referrals: Primitivo Nam [Primary Care Provider] - As needed Forms: Work/School Release Time of Disposition: 21:52 Medical Decision Making - [place] Inquiry Pt receiving controlled substance: No [place] was queried for this patient: No Vital Signs: 02/12/21 21:10 Temperature 97.9 F Temperature Source Oral Pulse Rate [Right Brachial] 79 Respiratory Rate 16 Blood Pressure [Right Arm] 136/73 Blood Pressure Mean [Right Arm] 94 Blood Pressure Source [Right Arm] Automatic Cuff Blood Pressure Position [Right Arm] Sitting 02 Sat by Pulse Oximetry 98 Oxygen Delivery Method Room Air Orders (Tests/Meds): ORDERS Category Date Time Status Covid-19 Nasal PCR ([facility]) Routine Lab 02/12/21 21:40 Ordered [facility] [place] HPI - General Stated complaint: covid test with symptoms Time Seen by Provider: 02/12/21 21:42 Mode of Arrival: Ambulatory Source of Information: Patient Limitations: No Limitations Description of Symptoms (Recalled from Triage Doc. by RN): PATIENT C/O CHEST CONGESTION, SWEATS, DIARRHEA AND FATIGUE HEENT Symptoms (Recalled from RN notes): Yes Resp Symptoms (Recalled from RN notes): No Skin Symptoms (Recalled from RN notes): No MS Symptoms (Recalled from RN notes): No Functional Status (Recalled from RN notes): WNL - History of Present Illness Provider Complaint: Patient states that she has been having body aches, muscle aches, feeling like her chest is a little congestion, diarrhea and headaches States that has been having similar symptoms and worried that she may have COVID and wanted to get tested - Related Data Home Medications Medication Instructions Recorded Confirmed atorvastatin 80 mg tablet 80 mg PO DAILY 01/08/18 07/05/20 metoprolol tartrate 50 mg tablet 50 mg PO BID 01/08/18 07/05/20 red yeast rice 600 mg capsule 600 mg PO DAILY 01/08/18 07/05/20 zonisamide 100 mg capsule 300 mg PO DAILY 08/24/19 07/05/20 Blood Sugar Diagnostic [Accu-Chek See Rx Instructions .ROUTE 05/30/20 07/05/20 Guide test strips] .MEDSUPPLY Erenumab-Aooe [Aimovig 140 mg SQ MONTHLY 05/30/20 07/05/20 Autoinjector] Ergocalciferol (Vitamin D2) 50,000 unit PO QWEEK 05/30/20 07/05/20 [Drisdol] Metformin HCl 250 mg PO BID 05/30/20 07/05/20 Previous Rx's Medication Instructions Recorded blood sugar diagnostic See Rx Instructions .ROUTE 08/16/20 .MEDSUPPLY #10
[2021-02-12 21:46] LABS: UTC Influenza A Antigen Negative (Negative); UTC Influenza B Antigen Negative (Negative)
[2021-02-12 21:55] VITALS: BP 136/73; PULSE 79; RESP 16; TEMP 36.6; O2SAT 98
== END 2021-02-12 22:15 | disposition home or self-care (01) ==
PROVIDERS: Emergency Provider Nurse Practitioner; PCP Family Medicine
DX: U07.1 COVID-19 (principal); J06.9 Acute upper respiratory infection, unspecified; E11.9 Type 2 diabetes mellitus without complications; E78.5 Hyperlipidemia, unspecified; E03.9 Hypothyroidism, unspecified; F17.210 Nicotine dependence, cigarettes, uncomplicated; Z79.899 Other long term (current) drug therapy
CPT/HCPCS: 87804; 99202; C9803; G0463; U0003; U0005

== ENCOUNTER → 2021-04-09 14:12 | Outpatient (CLI) | payer OTHER, SELFPAY ==
--- NOTE | 2021-04-09 14:12 | US_ITS ---
PROCEDURE: US BREAST LT COMPLETE CLINICAL INDICATION: breast mass COMPARISON: MG MM DIG MAMM BI DX W/CAD from 04/09/2021 FINDINGS: There is fairly homogeneous echogenicity of the breast parenchyma consistent with the patient's mammogram showing fibrofatty parenchyma. There is no suspicious mass or evidence of architectural distortion especially at the 1 to 2 o'clock position. There is a normal appearing node in the axilla. IMPRESSION: Unremarkable ultrasound left breast Dictated by: Dr. Jose Ibarra MD 04/13/2021 13:11 Dr. Jose Ibarra MD in [place] 04/13/2021 13:11
--- NOTE | 2021-04-09 14:12 | MM_ITS ---
PROCEDURE: MM DIG MAMM BI DX W/CAD Digital Breast Tomosynthesis Included CLINICAL INDICATION: breast mass COMPARISON: US US BREAST LT COMPLETE from 04/09/2021 TECHNIQUE: Standard CC and MLO images and 3D Tomosynthesis was obtained. R2 CAD reviewed. FINDINGS: The breasts are heterogeneously dense which may obscure small masses. No suspicious appearing mass, malignant-appearing microcalcification, architectural distortion, or skin thickening. Two markers are placed on the left breast at areas of palpable concern 1 in the retroareolar region laterally and 1 in the 12 o'clock region left breast central 1/3. No definite mammographic abnormalities evident at these regions. A 3 mm benign-appearing nodule is present in the upper outer left breast. IMPRESSION: BI-RAD Category: 1 Negative FOLLOW-UP: 1 YR 1 Year Follow-up Negative mammogram and negative ultrasound does not exclude the possibility of malignancy. If there is indeed a palpable mass then, suggest management with clinical findings. (A letter has been sent to the patient regarding results of the study.) Dictated by: Gallo Silvestre MD 04/20/2021 12:01 Gallo Silvestre MD in [place] 04/20/2021 12:01
== END ==
PROVIDERS: PCP Nurse Practitioner Family; Visit Provider Nurse Practitioner Family
DX: R22.2 Localized swelling, mass and lump, trunk (principal); N63.20 Unspecified lump in the left breast, unspecified quadrant
CPT/HCPCS: 76641; 77062; 77066; G0279

== ENCOUNTER → 2021-06-13 17:37 | Outpatient (CLI) | payer BC, SELFPAY ==
[2021-06-13 18:56] LABS: Basophils # 0.1 K/mm3 (0-0.2); Basophils % 0.9 % (0.1-2.0); Eosinophils # 0.3 K/mm3 (0.0-0.4); Eosinophils % 2.4 % (0.1-12.0); Hematocrit 48.4 % (37.0-47.0); Hemoglobin 15.8 g/dL (12.2-16.2); Lymphocytes % 26.6 % (10-50); Mean Corpuscular HGB Conc 32.6 g/dL (31.8-35.4); Mean Corpuscular Hemoglobin 31.6 pg (27.0-31.2); Mean Corpuscular Volume 96.7 fl (81-99); Mean Platelet Volume 9.4 fl (7.4-10.4); Monocytes # 0.5 K/mm3 (0.1-1.0); Monocytes % 4.8 % (1.7-9.3); Neutrophils # 7.3 K/mm3 (1.8-7.8); Neutrophils % 65.3 % (37.0-80.0); Platelet Count 317 K/mm3 (142-424); Red Cell Distribution Width 12.7 % (11.5-17.5); White Blood Count 11.2 K/mm3 (4.8-10.8)
[2021-06-13 19:06] LABS: Hemoglobin A1C 5.9 % (4.0-6.0)
[2021-06-13 19:08] LABS: Chloride 107 mmol/L (98-107); Sodium 142 mmol/L (136-145)
[2021-06-13 19:11] LABS: Alanine Aminotransferase 25 U/L (12-78); Albumin/Globulin Ratio 1.7 (1.1-1.8); Alkaline Phosphatase 87 U/L (38-126); Aspartate Amino Transferase 28 U/L (14-36); Bilirubin,Total 0.2 mg/dl (0.2-1.3); Blood Urea Nitrogen 12 mg/dl (7-17); Calcium 9.8 mg/dl (8.4-10.2); Carbon Dioxide 23 mmol/L (22.0-30.0); Cholesterol 174 mg/dl (140-200); Estimated Glomerular Filt Rate 93 ml/min (>60); GFR (African American) 112 ML/MIN (>60); Globulin 2.9 g/dL (1.3-3.2); Glucose 115 mg/dl (74-100); Total Protein,Serum 7.9 g/dl (6.3-8.2); Triglycerides 192 mg/dl (30-150); VLDL Cholesterol 38 mg/dL (0-40)
[2021-06-13 19:12] LABS: HDL Cholesterol 35 mg/dl (40-60)
[2021-06-13 19:23] LABS: Direct LDL Cholesterol 110.11 mg/dL (100-129)
[2021-06-13 19:43] LABS: Thyroid Stimulating Hormone 1.23 uIU/mL (0.465-4.68)
== END ==
PROVIDERS: Visit Provider Nurse Practitioner Family
DX: E11.9 Type 2 diabetes mellitus without complications (principal); L02.619 Cutaneous abscess of unspecified foot; L03.119 Cellulitis of unspecified part of limb; Z79.84 Long term (current) use of oral hypoglycemic drugs
CPT/HCPCS: 80053; 80061; 83036; 84439; 84443; 85025

== ENCOUNTER → 2021-09-14 20:02 | Outpatient (CLI) | payer BC, SELFPAY ==
[2021-09-14 14:22] LABS: MANUAL DIFFERENTIAL MANUAL DIFFERENTIAL (MANUAL DIFF)
[2021-09-14 14:49] LABS: Alanine Aminotransferase 34 U/L (12-78); Albumin Level 4.4 g/dl (3.5-5.0); Albumin/Globulin Ratio 1.6 (1.1-1.8); Alkaline Phosphatase 87 U/L (38-126); Aspartate Amino Transferase 31 U/L (14-36); Bilirubin,Total 0.4 mg/dl (0.2-1.3); Blood Urea Nitrogen 10 mg/dl (7-17); Calcium 9.5 mg/dl (8.4-10.2); Carbon Dioxide 23 mmol/L (22.0-30.0); Chloride 110 mmol/L (98-107); Estimated Glomerular Filt Rate 93 ml/min (>60); GFR (African American) 112 ML/MIN (>60); Globulin 2.8 g/dL (1.3-3.2); Glucose 104 mg/dl (74-100); Sodium 142 mmol/L (136-145); Total Protein,Serum 7.2 g/dl (6.3-8.2)
[2021-09-14 14:59] LABS: Basophils # 0.2 K/mm3 (0-0.2); Basophils % 2.1 % (0.1-2.0); Eosinophils # 0.3 K/mm3 (0.0-0.4); Eosinophils % 2.5 % (0.1-12.0); Hemoglobin 14.5 g/dL (12.2-16.2); Lymphocytes # 2.6 K/mm3 (0.7-4.5); Lymphocytes % 24.7 % (10-50); Mean Corpuscular Hemoglobin 31.7 pg (27.0-31.2); Mean Corpuscular Volume 96.1 fl (81-99); Mean Platelet Volume 8.9 fl (7.4-10.4); Monocytes # 0.4 K/mm3 (0.1-1.0); Monocytes % 4.2 % (1.7-9.3); Neutrophils % 66.6 % (37.0-80.0); Platelet Count 319 K/mm3 (142-424); Red Blood Count 4.58 M/mm3 (4.20-5.40); White Blood Count 10.6 K/mm3 (4.8-10.8)
[2021-09-14 15:05] LABS: Hemoglobin A1C 6.2 % (4.0-6.0)
[2021-09-14 15:06] LABS: Free T4 (Free Thyroxine) 1.39 ng/dl (0.78-2.19)
[2021-09-14 15:20] LABS: Thyroid Stimulating Hormone 1.65 uIU/mL (0.465-4.68)
[2021-09-14 17:45] LABS: Eosinophils % 5 % (0-3); Lymphocytes % 21 % (10-50); Monocytes % 4 % (2-9); Neutrophils % 70 % (42-76); Platelet Estimate Normal; RBC Morphology Normal; Total Cells Counted 100
== END ==
PROVIDERS: PCP Nurse Practitioner Family; Visit Provider Nurse Practitioner Family
DX: R73.03 Prediabetes (principal); Z79.899 Other long term (current) drug therapy
CPT/HCPCS: 80053; 83036; 84439; 84443; 85007; 85014; 85018; 85048; 85049

== ENCOUNTER → 2022-02-05 14:17 | Outpatient (POV) | payer BC, SELFPAY | PROVIDERS: Visit Provider Dermatology | DX: Z00.00 Encounter for general adult medical examination without abnormal findings (principal) ==

== ENCOUNTER → 2022-04-10 08:00 | Outpatient (CLI) | payer BC, SELFPAY ==
--- NOTE | 2022-04-10 08:10 | MM_ITS ---
PROCEDURE INFORMATION: Exam: MG Bilateral Screening 3D Mammography Exam date and time: 04/10/2022 8:02 AM Age: 42 years old Clinical indication: Screening examination. No family history of breast cancer. TECHNIQUE: Imaging protocol: Bilateral Screening tomosynthesis and 2D mammography including computer-aided detection (CAD) when performed. COMPARISON: 1. MG MM DIG MAMM BI DX W/CAD 04/09/2021 2:19 PM 2. US BREAST LT COMPLETE 04/09/2021 2:49 PM FINDINGS: MAMMOGRAPHY: Breast composition: There are scattered areas of fibroglandular density. Mass: None. Architectural distortion: None. Calcifications: No suspicious calcifications. Asymmetric density: None. Skin thickening: None. Axillary adenopathy: None. IMPRESSION: No mammographic evidence of malignancy. Annual screening is recommended unless otherwise clinically indicated. ASSESSMENT: BI-RADS Category 1: Negative
== END ==
PROVIDERS: PCP Nurse Practitioner Family; Visit Provider Nurse Practitioner Family
DX: Z12.31 Encounter for screening mammogram for malignant neoplasm of breast (principal)
CPT/HCPCS: 77063; 77067

== ENCOUNTER → 2022-06-07 09:20 | Outpatient (CLI) | payer BC, SELFPAY ==
--- NOTE | 2022-06-07 09:27 | XR_ITS ---
FINAL REPORT CLINICAL HISTORY: r/o lupus FINDINGS: RIGHT HAND 2 views of the right hand were obtained. There is no acute fracture or dislocation. The joint spaces are intact. No bony erosion is seen. Bone mineralization is normal. There is no soft tissue abnormality. IMPRESSION: No acute bony abnormality. Reviewed, Interpreted and Dictated by Kory Raza MD Transcribed by Mayela Andre Authenticated and [facility]
--- NOTE | 2022-06-07 09:27 | XR_ITS ---
FINAL REPORT TECHNIQUE: Two views CLINICAL HISTORY: RASH,FATIGUE r/o lupus FINDINGS: Lungs and mediastinum show changes of old calcified granulomatous disease. No acute pulmonary density is evident. Mediastinum and heart are otherwise unremarkable. IMPRESSION: No acute findings. Evidence of old calcified granulomatous disease. Reviewed, Interpreted and Dictated by Kory Raza MD Transcribed by Amber Burleson Authenticated and [facility]
--- NOTE | 2022-06-07 09:27 | XR_ITS ---
FINAL REPORT CLINICAL HISTORY: r/o lupus FINDINGS: LEFT HAND 2 views of the left hand were obtained. There is no acute fracture or dislocation. The joint spaces are intact. No bony erosion is seen. Bone mineralization is normal. There is no soft tissue abnormality. IMPRESSION: No acute bony abnormality. Reviewed, Interpreted and Dictated by Kory Raza MD Transcribed by Mayela Andre Authenticated and [facility]
== END ==
PROVIDERS: PCP Nurse Practitioner Family; Visit Provider Internal Medicine
DX: R21 Rash and other nonspecific skin eruption (principal); R53.83 Other fatigue; R76.8 Other specified abnormal immunological findings in serum
CPT/HCPCS: 71046; 73120

== ENCOUNTER → 2022-08-14 10:38 | Outpatient (CLI) | payer BC, OTHER, SELFPAY ==
[2022-08-14 12:31] LABS: Free T4 (Free Thyroxine) 1.33 ng/dl (0.78-2.19)
[2022-08-14 12:45] LABS: Thyroid Stimulating Hormone 0.03 uIU/mL (0.465-4.68)
== END ==
PROVIDERS: PCP Nurse Practitioner Family; Visit Provider Nurse Practitioner Family
DX: E03.9 Hypothyroidism, unspecified (principal)
CPT/HCPCS: 36415; 84439; 84443

== ENCOUNTER 2023-10-20 11:51 | Outpatient (CLI) | payer BC, OTHER, SELFPAY ==
[2023-10-20 18:55] LABS: Microscopic, Urine URINE MICROSCOPIC (MICROSCOPIC)
[2023-10-20 20:49] LABS: Appearance,Urine CLEAR (Clear); Bilirubin,Urine Negative (Negative); Blood, Urine 1+ (Negative); Color,Urine YELLOW (Yellow); Glucose,Urine (UA) Negative (Negative); Ketones,Urine Negative (Negative); Leukocyte Esterase,Urine Negative (Negative); Nitrate,Urine Negative (Negative); Protein,Urine Negative (Negative); Specific Gravity, Urine 1.015 (1.005-1.030); Urobilinogen,Urine 0.2 EU/dl (0.2)
[2023-10-20 23:10] LABS: RBC,Urine Occasional #/hpf (0-3); Squamous Epithelial Cell,Urine Occasional #/hpf (0-5); WBC,Urine Occasional #/hpf (0-3)
== END 2023-10-20 23:59 | disposition home or self-care (01) ==
LOC: LAB.DROPOF 10-21 11:52
PROVIDERS: PCP Obstetrics & Gynecology; Visit Provider Obstetrics & Gynecology
DX: R10.2 Pelvic and perineal pain (principal)
CPT/HCPCS: 81001; 87086

== ENCOUNTER 2023-10-23 10:25 | Outpatient (CLI) | payer BC, OTHER, SELFPAY ==
--- NOTE | 2023-10-23 10:25 | US_ITS ---
Ultrasound Sonograher: PROCEDURE: US TRANSVAGINAL CLINICAL INDICATION: pelvic pain, dyspareunia COMPARISON: No exams were available for comparison FINDINGS: Transvaginal sonographic images of the pelvis were obtained. UTERUS: Surgically absent The vaginal cuff is intact. There is bowel seen at the vaginal cuff. LEFT OVARY: Surgically absent. RIGHT OVARY: Surgically absent. Both ovaries are surgically absent. There is no fluid in the cul-de-sac. IMPRESSION: 1. The uterus and ovaries are surgically absent. 2. The vaginal vault is intact. Bowel is seen at vaginal cuff. 3. There is no fluid in the cul-de-sac. Dictated by: Bob Reese MD 10/23/2023 13:56 Bob Reese MD in [place] 10/23/2023 13:56
== END 2023-10-23 23:59 | disposition home or self-care (01) ==
LOC: RAD 10:25
PROVIDERS: PCP Nurse Practitioner Family; Visit Provider Obstetrics & Gynecology
DX: R10.2 Pelvic and perineal pain (principal); N94.19 Other specified dyspareunia
CPT/HCPCS: 76830

== ENCOUNTER 2023-11-17 15:30 | Outpatient (CLI) | payer BC, OTHER, SELFPAY ==
[2023-11-17 16:10] LABS: Blood Urea Nitrogen 8 mg/dl (7-17); Estimated Glomerular Filt Rate 69 ml/min (>60); GFR (African American) 83 ML/MIN (>60)
== END 2023-11-17 23:59 | disposition home or self-care (01) ==
PROVIDERS: PCP Nurse Practitioner Family; Visit Provider Obstetrics & Gynecology
DX: R31.9 Hematuria, unspecified (principal); R10.2 Pelvic and perineal pain; Z87.891 Personal history of nicotine dependence
CPT/HCPCS: 36415; 82565; 84520

== ENCOUNTER 2023-11-18 06:27 | Outpatient (CLI) | payer BC, OTHER, SELFPAY ==
--- NOTE | 2023-11-18 06:30 | CT_ITS ---
FINAL REPORT TECHNIQUE: Axial images through the abdomen were performed. This study was performed with techniques to keep radiation doses as low as reasonably achievable, (ALARA). Individualized dose reduction techniques using automated exposure control or adjustment of mA and/or kV according to the patient's size were employed. CLINICAL HISTORY: hematuria, abd pain COMPARISON: None FINDINGS: The lung bases are clear. The liver is normal in size and attenuation. The spleen is unremarkable. The adrenals are normal. The pancreas is unremarkable. The kidneys enhance appropriately. Precontrast images do not reveal abnormal calcifications to suggest renal stones. The gallbladder has been surgically resected. The visualized portions of the bowel are unremarkable in appearance. IMPRESSION: No evidence of renal stones or obstruction. No findings are present to explain hematuria. Reviewed, Interpreted and Dictated by Kory Raza MD Transcribed by Idalia Alonzo Authenticated and [facility]
[2023-11-18] MEDS: SODIUM CHLORIDE 0.9% 10ML SYR (RAD ONLY) 10 ML IV (06:49)
[2023-11-18] MEDS: BARIUM SULFATE(READI-CAT2);450ML BOTTLE 450 ML PO (06:49)
[2023-11-18] MEDS: IOPAMIDOL-370 (76%);100ML BOTTLE 75 ML IV (06:49)
== END 2023-11-18 23:59 | disposition home or self-care (01) ==
LOC: RAD 06:27
PROVIDERS: PCP Nurse Practitioner Family; Visit Provider Obstetrics & Gynecology
DX: R10.2 Pelvic and perineal pain (principal); R31.9 Hematuria, unspecified; R10.9 Unspecified abdominal pain; E66.9 Obesity, unspecified; Z68.38 Body mass index [BMI] 38.0-38.9, adult; Z87.891 Personal history of nicotine dependence
CPT/HCPCS: 74170; Q9967

== ENCOUNTER 2024-03-25 09:35 | Outpatient (CLI) | payer BC, OTHER, SELFPAY ==
--- NOTE | 2024-03-25 09:38 | MM_ITS ---
PROCEDURE INFORMATION: Exam: MG Bilateral Screening 3D Mammography Exam date and time: 03/25/2024 9:36 AM Age: 43 years old Clinical indication: Screening examination TECHNIQUE: Imaging protocol: Bilateral Screening tomosynthesis and 2D mammography including computer-aided detection (CAD) when performed. COMPARISON: 1. MG MM DIG SCREENING MAMM BI W/CAD 04/10/2022 8:02 AM 2. MG MM DIG MAMM BI DX W/CAD 04/09/2021 2:19 PM FINDINGS: MAMMOGRAPHY: Breast composition: There are scattered areas of fibroglandular density. Mass: No suspicious masses. Architectural distortion: None. Calcifications: No suspicious calcifications. Asymmetric density: None. Skin thickening: None. Axillary adenopathy: None. IMPRESSION: No mammographic evidence of malignancy. Annual screening is recommended unless otherwise clinically indicated. ASSESSMENT: BI-RADS Category 1: Negative.
== END 2024-03-25 23:59 | disposition home or self-care (01) ==
LOC: RAD 09:36
PROVIDERS: PCP Nurse Practitioner Family; Visit Provider Nurse Practitioner Family
DX: Z12.31 Encounter for screening mammogram for malignant neoplasm of breast (principal)
CPT/HCPCS: 77063; 77067

== ENCOUNTER 2025-03-08 10:21 | Outpatient (CLI) | payer BC, OTHER, SELFPAY ==
--- NOTE | 2025-03-08 10:24 | US_ITS ---
FINAL REPORT TECHNIQUE: Sonographic images of the thyroid gland were obtained in the longitudinal and transverse planes. CLINICAL HISTORY: GOITER COMPARISON: None FINDINGS: The right lobe measures 3.1 x 1.1 x 0.95 cm. The right lobe is homogeneous. There are no cystic or solid nodules. The left lobe measures 1.0 x 3.0 x 1.3 cm. There is a peripherally calcified subcentimeter lower pole nodule in the left lobe of the thyroid gland, a TR 4 category nodule. This nodule is a TI-RADS category 4 nodule, however based on size there are no current recommendations for follow-up. The isthmus measures 6 mm. This is normal. IMPRESSION: 1. TIRADS category 4 nodule in the left lobe of the thyroid gland. Based on size, there are no current recommendations regarding follow up. 2. The right lobe of the thyroid and the isthmus are unremarkable in appearance. Reviewed, Interpreted and Dictated by Debbie Alexander MD Transcribed by Idalia Alonzo Authenticated and [facility]
--- OUTSIDE RECORDS SUMMARY | 2025-03-08 10:27 | XMS_ITS | Encounter Summary ---
Author Organization [place] [address] Care Team Providers Care Business System Consultant Name Role Phone Unavailable Primary Care Provider Unavailabl e Reason for Visit * Reason Onset Date Comments Other 03/02/2025 Encounter Details Date Type Department Care Team (Late st Contact Info) Description 03/02/2025 Telephone [facility] [address] [address] Britta Phillips MA Other Social History Tobacco Use Types Packs/Day Years Used Date Smoking Tobacco: Former Cigarettes Smokeless Tobacco: Never Comments No Sex and Gender Information Value Date Recorded Sex Assigned at Not on file Legal Sex Female 2:11 PM EDT Gender Identity Not on file Sexual Orientation Not on file documented as of this encounter Miscellaneous Notes * Telephone Encounter - Britta Phillips MA - 03/02/2025 8:23 AM EDT I LVM for the patient to call back to let her know that she is due for her UA due to gross hematuria it can be a voided specimen. If she is still having periods she will need to complete the test 2 weeks after her last period to avoid contamination. documented in this encounter Plan of Treatment Not on file documented as of this encounter Visit Diagnoses Not on filedocumented in this encounter
--- OUTSIDE RECORDS SUMMARY | 2025-03-08 10:27 | XMS_ITS | Clinical Summary ---
Author Organization [facility] Address [address] [place] [phone] Phone Care Team Providers Care Lay Out Technician Name Role Phone Unavailable Primary Care Provider Unavailabl e Allergies Active Allergy Reactions Criticality Noted Date Comments Amoxicillin Other (See Comments) Low 09/14/2021 Clavulanic Acid Other (See Comments) Low 09/14/2021 Tramadol Hives,Other (See Comments) Medium 8 Medications venlafaxine (EFFEXOR-XR) 75 mg Oral Capsule, Sust. Release 24 hr 75 mg. 07/18/2022 Active conjugated estrogens (PREMARIN) Vagl Cream 0.625 mg. 10/20/2023 Active atorvastatin (LIPITOR) 80 mg Oral Tablet 80 mg. 09/30/2017 Active LEVOthyroxine (SYNTHROID) 125 mcg Oral Tablet 125 mcg. 08/27/2022 Act braxton MOUNJARO 5 mg/0.5 mL SubQ Pen Injector 03/11/2023 Active ubrogepant (UBRELVY) 100 mg Oral Tablet 100 mg. 06/13/2021 Active metFORMIN (GLUCOPHAGE) 500 mg Oral Tablet .COMPLEX 03/04/2019 Acti ve metoprolol (LOPRESSOR) 50 mg Oral Tablet 50 mg. 06/18/2017 Acti ve zonisamide (ZONEGRAN) 100 mg Oral Capsule 300 mg. 08/24/2019 Act braxton erenumab-aooe 140 mg/mL SubQ Auto-Injector 140 mg. 03/20/2023 Activ e cetirizine (ZYRTEC) 10 mg Oral Tablet Take 1 tablet every day by oral route. 02/04/2023 Active TRUE METRIX GLUCOSE TEST STRIP Misc Strip 12/22/2023 Ac tive Blood Sugar Diagnostic Misc Strip 05/20/2022 Active Active Problems Problem Noted Date Diagnosed Date Chronic constipation 02/03/2024 Pelvic floor dysfunction in female 02/03/2024 Encounters Date Type Department Care Team Description 03/02/2025 Telephone [facility] [address] [phone] Britta Phillips MA Other from Last 3 Months Surgical History Surgery Date Site/Laterality Comments HYSTERECTOMY GALLBLADDER SURGERY PELVIC LAPAROSCOPY Medical History Medical History Date Comments Hypertension Urinary incontinence Social History Tobacco Use Types Packs/Day Years Used Date Smoking Tobacco: Former Cigarettes Smokeless Tobacco: Never Tobacco Cessation:Counseling Given: Not Answered Comments No Sex and Gender Information Value Date Recorded Sex Assigned at Not on file Legal Sex Female 2:11 PM EDT Gender Identity Not on file Sexual Orientation Not on file Obstetrics History Para Term AB IAB SAB Ectopic Multiple Livin g Live Births 1 1 1 Date Outcome GA Total Labor Labor/2nd/3rd Weight Sex Type Anes PTL Katerina A1 A5 Name Clin Term Last Filed Vital Signs Vital Sign Reading Time Taken Comments Blood Pressure - - Pulse 80 02/03/2024 11:13 AM EDT Temperature - - Respiratory Rate - - Oxygen Saturation 99% 02/03/2024 11:13 AM EDT Inhaled Oxygen Concentration - - Weight 112 kg (247 lb) 02/03/2024 11:13 AM EDT Height - - Body Mass Index - - Plan of Treatment Health Maintenance Due Date Last Done Comments Annual Wellness Exam 1984 DTaP/TDaP/Td (1 - Tdap) 2000 Hepatitis B Vaccine (1 of 3 - 19+ 3-dose series) 2000 Cervical Cancer Screening 2002 Pap Smear 2002 HPV/Pap Cotest 2011 Breast Cancer Screening 2021 08/04/2015 COVID-19 Vaccine (3 - 2024-2 6 season) 2025 05/27/2021, 04/30/2021 Influenza Vaccine (#1) 2025 Meningococcal B Vaccine Aged Out No l onger eligible based on patient's age to complete this topic Pneumococcal Vaccine 0-49 Aged Out No longer eligible based on patient's age to complete this topic Insurance ANTHEM PPO ANTHEM PPO
--- OUTSIDE RECORDS SUMMARY | 2025-03-08 10:27 | XMS_ITS | Clinical Summary ---
Author Organization [facility] Address [address] [place] [address] Care Team Providers Care Piling Cutter Name Role Phone Dennis Sims MD Unavailable [phone] Tarun Chen APRN Primary Care Provider [phone] Allergies Active Allergy Reactions Criticality Noted Date Comments Amoxicillin Other - please docum ent in the comment field Low 09/14/2021 Amoxicillin-Pot Clavulanate Hives Medium 12/23/19 19 Clavulanic Acid Other - please docum ent in the comment field Low 09/14/2021 Tramadol Hives,Unknown - Rita ent states they do not know rxn details Medium 10/10/2017 Medications atorvastatin (Lipitor) 80 MG tablet Take 1 tablet (80 mg) by mouth daily. 8 Active metFORMIN (Glucophage) 500 MG tablet Take 1 tablet (500 mg) by mouth every 12 (twelve) hours. 9 Active metoprolol tartrate (Lopressor) 50 MG tablet Take 1 tablet (50 mg) by mouth daily. 8 Active True Metrix Blood Glucose Test test strip 2 Active venlafaxine XR (Effexor-XR) 75 MG 24 hr capsule 3 Active zonisamide (Zonegran) 100 MG capsule TAKE 3 CAPSULES BY MOUTH AT BEDTIME 90 capsule 5 3 Active cetirizine (ZyrTEC ALLERGY) 10 MG tablet Take 1 tablet every day by oral route. 3 Active levothyroxine (Synthroid, Levoxyl) 125 MCG tablet 3 Active Trulance 3 MG tablet 5 Active ubrogepant (Ubrelvy) 100 MG tabletIndication s:Intractable chronic migraine without aura and with status migrainosus After 2 hours, a second dose may be taken if needed. Maximum dose: 200 mg in 24-hour period. 10 tablet 4 5 Active Erenumab-aooe (Aimovig) 140 MG/ML solution auto-injectorInd ications:Intract able chronic migraine without aura and with status migrainosus Inject 140 mg under the skin every 30 days. 3 mL 2 5 Active Active Problems Problem Noted Date Diagnosed Date IIH (idiopathic intracranial hypertension) 03/13 Intractable chronic migraine without aura and with status migrainosus 03/13/2023 Resolved Problems Problem Noted Date Diagnosed Date Resolved Date Other localized visual field defect, bilateral 03/13/2023 02/20/2025 Myopia of both eyes 03/13/2023 02/21/20 25 Encounters Date Type Department Care Team Description 01/05/2025 Orders Only [facility] [address] [place] [address] Jose Cabrera, PharmD 01/04/2025 Refill [facility] [address], [address] [place] [address] John Schwarz MD Intractable chronic migraine without aura and with status migrainosus from Last 3 Months Family History Medical History Relation Name Comments Cardiac disorder Father Cataracts Father Diabetes Father Diabetes Mother Arthritis Other 1 Cardiac disorder Other 2 Cardiac disorder Other 3 Stroke Other 4 Dementia Other 5 Diabetes Other 6 Hypertension Other 7 Seizures Other 8 Tremor Other 9 Relation Name Status Comments Father Mother Other 1 Other 2 Other 3 Other 4 Other 5 Other 6 Other 7 Other 8 Other 9 Social History Tobacco Use Types Packs/Day Years Used Date Smoking Tobacco: Former Cigarettes 1 20 0 11/01/2001 - 11/01/2021 Smokeless Tobacco: Never Tobacco Cessation:Counseling Given: Not Answered Comments:Would like to quit smoking Alcohol Use Standard Drinks/Week Comments Never 0 (1 standard drink = 0.6 oz pur e alcohol) Comments No Sex and Gender Information Value Date Recorded Sex Assigned at Female 12/05/2021 9:26 PM EDT Legal Sex Female 6:12 PM EDT Gender Identity Female 12/05/2021 9:26 PM EDT Sexual Orientation Not on file Last Filed Vital Signs Vital Sign Reading Time Taken Comments Blood Pressure 118/72 07/29/2024 10:46 AM EST Pulse 57 07/29/2024 10:46 AM EST Temperature 36.7 C (98 F) 08/20/2022 11:26 AM EDT Respiratory Rate 18 08/20/2022 12:00 PM EDT Oxygen Saturation 96% 07/29/2024 10:46 AM EST Inhaled Oxygen Concentration - - Weight 111 kg (245 lb) 07/29/2024 10:46 AM EST Height 162.6 cm (5' 4 ) 07/29/2024 10:46 AM EST Body Mass Index 42.05 07/29/2024 10:46 AM EST Plan of Treatment Health Maintenance Due Date Last Done Comments [facility]-Depression Screening 1981 [facility]-HIV Screening 1981 [facility]-Hepatitis C Screening 1981 [facility]-Infant/Child/Adol SDOH Screenings 1981 [facility]-Varicella Vaccines (1 of 2 - 13+ 2-dose series) 1994 [facility]- SDOH Screenings 1999 [facility]-Adult SDOH Screenings 1999 [facility]-DTaP,Tdap,and Td Vaccines (1 - Tdap) 2000 [facility]-Hepatitis B Vaccines (1 of 3 - 19+ 3-dose series) 2000 HPV Vaccines (1 - 3-dose SCDM series) 2008 [id number] Vaccine (3 - Moderna risk series) 06/24/2021 05/27/2021, 04/30/2021 [facility]-Influenza Vaccine (#1) 2025 [facility]-Zoster Vaccines (1 of 2) 2031 [facility]-Obesity Intervention Completed 025, 07/20/2024, 03/20/2023, Additional history exists [facility]-HIB Vaccines Aged Out No longer e ligible based on patient's age to complete this topic [facility]-Hepatitis A Vaccines Aged Out No longer eligible based on patient's age to complete this topic [facility]-IPV Vaccines Aged Out No longer e ligible based on patient's age to complete this topic [facility]-Pneumococcal Vaccine: Pediatrics (0 to 5 Years) and At-Risk Patients (6 to 49 Years) Aged Out No longer eligible based on patient's age to complete this topic [facility]-Rotavirus Vaccines Aged Out No lo nger eligible based on patient's age to complete this topic Insurance ANTHEM Care Teams Piling Cutter Relationship Specialty Start Date End Date Tarun Chen APRN [address] [place] [id number] PCP - General 08/08/22 Dennis Sims MD [address] [facility] [address] [place] [address] Consulting Physician Neurology 05/08/21
--- OUTSIDE RECORDS SUMMARY | 2025-03-08 10:27 | XMS_ITS | Clinical Summary ---
Author Organization [facility] Address [address] [place] [address] Care Team Providers Care Flow Nurse Name Role Phone Primitivo Nam MD Primary Care Provider Social History Tobacco Use Types Packs/Day Years Used Date Smoking Tobacco: Never Assessed Abuse Screen Answer Date Recorded Unsafe at Home or Work/School Not on file Feels Threatened by Someone? Not on file 01/2023 Does Anyone Keep You from Co ntacting Others or Doint Things Outside the Home? Not on file 03/10/2023 Physical Sign of Abuse Present Not on file 1 Housing Stability Answer Date Recorded Current Living Arrangements Not on file 01/2023 Potentially Unsafe Housing Conditions Not on lakesha e 03/10/2023 Family and Community Support Answer Lalo e Recorded Help with Day-to-Day Activities Not on file 03/10/2023 Lonely or Isolated Not on file 03/10/2023 Employment Answer Date Recorded Do you want help finding or keeping work or a falguni b? Not on file 03/10/2023 Disabilities Answer Date Recorded Concentrating, Remembering, or Making Decisions Difficulty Not on file 03/10/2023 Doing Errands Independently Difficulty Not on fi le 03/10/2023 Education Answer Date Recorded Help with school or training? Not on file Preferred Language Not on file 03/10/2023 Comments Unknown Sex and Gender Information Value Date Recorded Sex Assigned at Not on file Legal Sex Female 11:57 AM EDT Gender Identity Not on file Sexual Orientation Not on file Plan of Treatment Health Maintenance Due Date Last Done Comments ANNUAL PHYSICAL 1981 Annual Gynecologic Pelvic an d Breast Exam 1981 HEPATITIS C SCREENING 1981 TDAP/TD VACCINES (1 - Tdap) 2000 MAMMOGRAM 2021 08/04/2015, 02/28/2015 INFLUENZA VACCINE 12/31/2024 Pneumococcal Vaccine 0-49 Aged Out No longer eligible based on patient's age to complete this topic Procedures Procedure Name Priority Date/Time Associated Diagnosis Comments MAMMO DIAGNOSTIC LEFT W CAD Routine 08/04/2015 10:12 AM EST from Last 3 Months or Most Recently Relevant to Health Maintenance Results * Mammo diagnostic left w CAD (08/04/2015 10:12 AM EST) Anatomical Region Laterality Modality Breast Left Mammography 08/04/2015 10:1 2 AM EST Narrative 08/04/2015 2:22 PM EST DIAGNOSTIC LEFT MAMMOGRAM - 08/04/2015- HISTORY- Six-month followup for an asymmetry in the left breast, no current complaints. TECHNIQUE- Standard views of the left breast were performed and compared to prior mammograms dated 02/28/2015, images of the left breast. The patient today only complains of nonfocal left breast pain. FINDINGS- The breast tissue is composed of scattered fibroglandular densities. No suspicious masses, microcalcifications, or areas of architectural distortion are identified. The asymmetry is no longer visualized. IMPRESSION- BI-RADS CATEGORY I, NEGATIVE EXAM. RECOMMENDATION- The patient should return to routine annual screening mammography of both breasts at age 40 unless clinically indicated sooner. CAD was utilized. The standard false-negative rate of mammography is between 10% and 25%. Complex patterns or increased breast density will markedly elevate the false-negative rate of mammography. A results letter, in lay terminology, will be given to the patient at the conclusion of the exam. Reading Radiologist- SANDY CHAVEZ Releasing Radiologist- SANDY CHAVEZ Released Date Time- 08/04/15 1422 Truck Repair Supervisor- Lenora Procedure Note Sandy Chavez MD - 08/04/2015 DIAGNOSTIC LEFT MAMMOGRAM - 08/04/2015- HISTORY- Six-month followup for an asymmetry in the left breast, no current complaints. TECHNIQUE- Standard views of the left breast were performed and compared to prior mammograms dated 02/28/2015, images of the left breast. The patient today only complains of nonfocal left breast pain. FINDINGS- The breast tissue is composed of scattered fibroglandular densities. No suspicious masses, microcalcifications, or areas of architectural distortion are identified. The asymmetry is no longer visualized. IMPRESSION- BI-RADS CATEGORY I, NEGATIVE EXAM. RECOMMENDATION- The patient should return to routine annual screening mammography of both breasts at age 41 unless clinically indicated sooner. CAD was utilized. The standard false-negative rate of mammography is between 10% and 25%. Complex patterns or increased breast density will markedly elevate the false-negative rate of mammography. A results letter, in lay terminology, will be given to the patient at the conclusion of the exam. Reading RadiologistOdessa CHAVEZ Releasing RadiologistOdessa CHAVEZ Released Date Time- 08/04/15 1422 Truck Repair Supervisor- Lenora Primitivo Nam MD [facility] MAMMOGRAPHY ORDERABLES Pauly lechuga Result from Last 3 Months or Most Recently Relevant to Health Maintenance Care Teams Flow Nurse Relationship Specialty Start Date End Date Primitivo Nam MD [address] [place] [address] [place] [address] PCP - General 02/28/15
[2025-03-08 12:04] LABS: Hematocrit 43.8 % (37.0-47.0); Hemoglobin 14.3 g/dL (12.2-16.2); Immature Granulocytes % 0.3 %; Mean Corpuscular HGB Conc 32.6 g/dL (31.8-35.4); Mean Corpuscular Hemoglobin 30.1 pg (27.0-31.2); Mean Corpuscular Volume 92.2 fl (81-99); Nucleated Red Blood Cells % 0 %; Platelet Count 277 K/mm3 (142-424); Red Blood Count 4.75 M/mm3 (4.20-5.40); Red Cell Distribution Width-SD 42.9 fL; White Blood Count 7.9 K/mm3 (4.8-10.8)
[2025-03-08 12:34] LABS: Alanine Aminotransferase 79 U/L (12-78); Albumin Level 4.6 g/dl (3.5-5.0); Albumin/Globulin Ratio 1.8 (1.1-1.8); Alkaline Phosphatase 103 U/L (38-126); Anion Gap 15.4 mEq/L (5-15); Aspartate Amino Transferase 62 U/L (14-36); Bilirubin,Total 0.6 mg/dl (0.2-1.3); Blood Urea Nitrogen 10 mg/dl (7-17); Calcium 9.6 mg/dl (8.4-10.2); Carbon Dioxide 23 mmol/L (22.0-30.0); Chloride 108 mmol/L (98-107); Creatinine,Serum 0.80 mg/dl (0.52-1.04); Estimated Glomerular Filt Rate 78 ml/min (>60); GFR (African American) 95 ML/MIN (>60); Globulin 2.6 g/dL (1.3-3.2); Glucose 107 mg/dl (74-100); Potassium 4.4 mmoL/L (3.5-5.1); Sodium 142 mmol/L (136-145); Total Protein,Serum 7.2 g/dl (6.3-8.2)
[2025-03-08 12:50] LABS: Free T4 (Free Thyroxine) 1.01 ng/dl (0.78-2.19)
[2025-03-08 13:05] LABS: Thyroid Stimulating Hormone 3.02 uIU/mL (0.465-4.68)
== END 2025-03-08 23:59 | disposition home or self-care (01) ==
PROVIDERS: PCP Nurse Practitioner Family; Visit Provider Nurse Practitioner Family
DX: E04.1 Nontoxic single thyroid nodule (principal); E11.9 Type 2 diabetes mellitus without complications; E03.9 Hypothyroidism, unspecified
CPT/HCPCS: 36415; 76536; 80053; 84439; 84443; 85025; 86376

== ENCOUNTER 2025-03-30 10:30 | Outpatient (CLI) | payer BC, OTHER, SELFPAY ==
--- NOTE | 2025-03-30 10:32 | MM_ITS ---
PROCEDURE INFORMATION: Exam: MG Bilateral Screening 3D Mammography Exam date and time: 03/30/2025 10:36 AM Age: 44 years old Clinical indication: Screening mammogram TECHNIQUE: Imaging protocol: Bilateral Screening tomosynthesis and 2D mammography including computer-aided detection (CAD) when performed. COMPARISON: 1. MG MM DIG SCREENING MAMM BI W/CAD 03/25/2024 9:36 AM 2. MG MM DIG SCREENING MAMM BI W/CAD 04/10/2022 8:02 AM 3. MG MM DIG MAMM BI DX W/CAD 04/09/2021 2:19 PM 4. US BREAST LT COMPLETE 04/09/2021 2:49 PM FINDINGS: MAMMOGRAPHY: Breast composition: There are scattered areas of fibroglandular density. Mass: None. Architectural distortion: No new or suspicious architectural distortion. Calcifications: No new or suspicious calcifications are present Asymmetric density: No new or suspicious asymmetric density is present Skin thickening: None. Axillary adenopathy: None. IMPRESSION: No mammographic evidence of malignancy. Recommend annual screening mammography unless otherwise clinically indicated. ASSESSMENT: BI-RADS category 1: Negative.
--- OUTSIDE RECORDS SUMMARY | 2025-03-30 10:40 | XMS_ITS | Clinical Summary ---
Author Organization [facility] Address [address] [place] [phone] Phone Care Team Providers Care First Assistant Manager Name Role Phone Unavailable Primary Care Provider [...] Care Team Description 03/02/2025 Telephone [facility] [address] [phone] Britta Phillips MA Other from [...]
--- OUTSIDE RECORDS SUMMARY | 2025-03-30 10:41 | XMS_ITS | Clinical Summary ---
Author Organization [facility] Address [address] [place] [address] Care Team Providers Care Child And Family Services Worker Name Role Phone Dennis Sims MD Unavailable [phone] Tarun Chen APRN Primary Care Provider [phone] Allergies Active Allergy Reactions Criticality Noted Date [...] Department Care Team Description 01/05/2025 Orders Only [facility] [address], [address] [place] [address] Jose Cabrera, PharmD 01/04/2025 Refill [facility] [address] [place] [address] John Schwarz MD Intractable chronic migraine without [...] [facility]-HIV Screening 1981 [facility]-Hepatitis C Screening 1981 [facility]-/Child/Adol SDOH Screenings 1981 [facility]-Varicella Vaccines (1 of 2 - 13+ 2-dose series) 1994 [facility]- SDOH Screenings 1999 [facility]-Adult SDOH Screenings 1999 [facility]-DTaP,Tdap,and Td Vaccines (1 - Tdap) 2000 [facility]-Hepatitis B Vaccines (1 of 3 - 19+ 3-dose series) 2000 HPV Vaccines (1 - 3-dose SCDM series) 2008 [id number] Vaccine (3 - Moderna risk series) 06/24/2021 [...] complete this topic Insurance ANTHEM Care Teams Child And Family Services Worker Relationship Specialty Start Date End Date Tarun Chen APRN [address] [place] [id number] PCP - General 08/08/22 Dennis Sims MD [address] [facility] [address] [place] [address] Consulting Physician Neurology 05/08/21
--- OUTSIDE RECORDS SUMMARY | 2025-03-30 10:41 | XMS_ITS | Clinical Summary ---
Author Organization [facility] Address [address] [place] [address] Care Team Providers Care Food Preparer Name Role Phone Primitivo Nam MD Primary Care Provider [phone] Social History Tobacco Use Types Packs/Day Years [...] SANDY CHAVEZ Released Date Time- 08/04/15 1422 Content Architect- Lenora Procedure Note Sandy Chavez MD - [...] RadiologistOdessa CHAVEZ Released Date Time- 08/04/15 1422 Content Architect- Lenora Primitivo Nam MD [facility] MAMMOGRAPHY ORDERABLES Pauly lechuga Result from Last 3 Months or Most Recently Relevant to Health Maintenance Care Teams Food Preparer Relationship Specialty Start Date End Date Primitivo Nam MD [address] [place] [address] [place] [address] PCP - General 02/28/15
--- OUTSIDE RECORDS SUMMARY | 2025-03-30 10:41 | XMS_ITS | Encounter Summary ---
Author Organization [facility] [place] [address] Care Team Providers Care Supervisor Poultry Processing Name Role Phone Unavailable Primary Care Provider Unavailabl e Reason for Visit * Reason Onset Date Comments Other 03/02/2025 Encounter Details Date Type Department Care Team (Late st Contact Info) Description 03/02/2025 Telephone [facility] Uro[facility]necology [address] [phone] Britta Phillips MA Other Social [...]
== END 2025-03-30 23:59 | disposition home or self-care (01) ==
LOC: RAD 10:31
PROVIDERS: PCP Nurse Practitioner Family; Visit Provider Nurse Practitioner Family
DX: Z12.31 Encounter for screening mammogram for malignant neoplasm of breast (principal); R92.323 Mammographic fibroglandular density, bilateral breasts
CPT/HCPCS: 77063; 77067